=== PATIENT | female | born 1940 | race Two or more races ===

== ENCOUNTER 2017-10-23 14:34 | Outpatient (CLI) | payer OTHER ==
[~2017-10-23 14:34] MED LIST: BACTROBAN OINT22 GM TP; CEFTIN250 MG PO; HYZAAR 100-121 UDTAB; NAMENDA10 MG; VITAMIN B-1250 MCG
== END 2017-10-23 14:39 | disposition home or self-care (01) ==
LOC: RAD 14:34
DX: M25.562 Pain in left knee (principal)

== ENCOUNTER 2018-11-17 10:43 | Emergency (ER) | payer OTHER ==
[~2018-11-17] VITALS: Ht 157.5 cm; Wt 108.9 kg
[2018-11-17] MEDS ORDERED: RISPERDAL0.25 MG PO (10:55)
[2018-11-17] MEDS ORDERED: EFFEXOR XR150 MG PO (10:56)
[2018-11-17] MEDS ORDERED: AMBIEN10 MG PO (10:56)
[2018-11-17] MEDS ORDERED: REMERON30 M1 PO (10:57)
[2018-11-17] MEDS ORDERED: SERAX10 MG PO (10:57)
== END 2018-11-17 20:46 | disposition home or self-care (01) ==
LOC: ER 10:43
DX: J09.X2 Influenza due to identified novel influenza A virus with other respiratory manifestations (principal)

== ENCOUNTER 2019-01-25 08:33 | Outpatient (CLI) | payer OTHER ==
[~2019-01-25 08:33] MED LIST changes: +AMBIEN10 MG PO; +EFFEXOR XR150 MG PO; +REMERON30 M1 PO; +RISPERDAL0.25 MG PO; +SERAX10 MG PO
== END 2019-01-25 17:00 | disposition home or self-care (01) ==
LOC: MAMO-SONO 08:33
DX: N64.4 Mastodynia (principal); N60.11 Diffuse cystic mastopathy of right breast; Z12.31 Encounter for screening mammogram for malignant neoplasm of breast; N63.10 Unspecified lump in the right breast, unspecified quadrant; N63.20 Unspecified lump in the left breast, unspecified quadrant; Z87.898 Personal history of other specified conditions

== ENCOUNTER 2019-01-31 13:00 | Emergency (ER) | payer OTHER ==
[~2019-01-31] VITALS: Ht 152.4 cm; Wt 106.6 kg
== END 2019-01-31 15:26 | disposition home or self-care (01) ==
LOC: ER 13:00
DX: S00.03XA Contusion of scalp, initial encounter (principal); W18.09XA Striking against other object with subsequent fall, initial encounter; Y93.89 Activity, other specified; Y92.89 Other specified places as the place of occurrence of the external cause; Y99.8 Other external cause status

== ENCOUNTER 2019-02-01 11:43 | Emergency (ER) | payer OTHER ==
[~2019-02-01] VITALS: Ht 154.9 cm; Wt 106.6 kg
== END 2019-02-01 18:34 | disposition home or self-care (01) ==
LOC: ER 11:43
DX: N39.0 Urinary tract infection, site not specified (principal)

== ENCOUNTER 2019-02-23 08:15 | Outpatient (CLI) | payer OTHER | END 2019-02-23 08:47 | disposition home or self-care (01) | LOC: SONOGRAMA 08:15 | DX: B18.2 Chronic viral hepatitis C (principal); K30 Functional dyspepsia; R19.8 Other specified symptoms and signs involving the digestive system and abdomen ==

== ENCOUNTER 2019-03-22 10:04 | Outpatient (CLI) | payer OTHER | END 2019-03-22 13:10 | disposition home or self-care (01) | LOC: SONOGRAMA 10:04 | DX: M54.5 Low back pain (principal) ==

== ENCOUNTER 2019-04-04 00:41 | Emergency (ER) | payer OTHER ==
[~2019-04-04] VITALS: Ht 165.1 cm; Wt 113.4 kg
== END 2019-04-04 04:31 | disposition home or self-care (01) ==
LOC: ER 00:41
DX: S01.02XA Laceration with foreign body of scalp, initial encounter (principal); W01.118A Fall on same level from slipping, tripping and stumbling with subsequent striking against other sharp object, initial encounter; Y93.89 Activity, other specified; Y92.098 Other place in other non-institutional residence as the place of occurrence of the external cause; Y99.8 Other external cause status

== ENCOUNTER 2019-04-13 11:27 | Emergency (ER) | payer OTHER ==
[~2019-04-13] VITALS: Ht 157.5 cm; Wt 108.9 kg
== END 2019-04-13 11:45 | disposition home or self-care (01) ==
LOC: ER 11:27
DX: Z48.02 Encounter for removal of sutures (principal)

== ENCOUNTER 2019-07-09 17:52 | Emergency (ER) | payer OTHER ==
[~2019-07-09] VITALS: Ht 154.9 cm; Wt 106.6 kg
== END 2019-07-09 21:28 | disposition home or self-care (01) ==
LOC: ER 17:52
DX: S30.0XXA Contusion of lower back and pelvis, initial encounter (principal); M54.5 Low back pain; W18.09XA Striking against other object with subsequent fall, initial encounter; Y93.89 Activity, other specified; Y92.018 Other place in single-family (private) house as the place of occurrence of the external cause; Y99.8 Other external cause status

== ENCOUNTER 2019-09-30 01:08 | Emergency (ER) | payer OTHER ==
[~2019-09-30] VITALS: Ht 157.5 cm; Wt 108.9 kg
== END 2019-09-30 06:43 | disposition home or self-care (01) ==
LOC: ER 01:08
DX: S00.83XA Contusion of other part of head, initial encounter (principal); M54.2 Cervicalgia; M25.561 Pain in right knee; R55 Syncope and collapse; W06.XXXA Fall from bed, initial encounter; Y93.89 Activity, other specified; Y92.018 Other place in single-family (private) house as the place of occurrence of the external cause; Y99.8 Other external cause status

== ENCOUNTER 2019-11-19 08:38 | Outpatient (CLI) | payer OTHER | END 2019-11-19 08:48 | disposition home or self-care (01) | LOC: LAB 08:38 | DX: B18.2 Chronic viral hepatitis C (principal); I11.9 Hypertensive heart disease without heart failure; E66.8 Other obesity ==

== ENCOUNTER 2019-11-19 10:30 | Outpatient (CLI) | payer OTHER | END 2019-11-19 10:33 | disposition home or self-care (01) | LOC: SONOGRAMA 10:30 → MAMO-SONO 11:15 | DX: B18.2 Chronic viral hepatitis C (principal) ==

== ENCOUNTER 2025-04-25 08:03 | Outpatient (CLI) | payer OTHER | END 2025-04-25 08:06 | disposition home or self-care (01) | LOC: SONOGRAMA 08:03 | PROVIDERS: ATTEND Psychiatry & Neurology Neurology | DX: R91.8 Other nonspecific abnormal finding of lung field (principal); R10.9 Unspecified abdominal pain ==